=== PATIENT | female | born 1945 | race Caucasian/White ===

== ENCOUNTER 2025-03-12 09:33 | Emergency (ER) | payer MEDICARE ==
[~2025-03-12] VITALS: Ht 162.6 cm; Wt 104.5 kg
[2025-03-12 09:34] VITALS: BP 180/84; PULSE 74; TEMP 97; O2SAT 96
[2025-03-12 10:29] VITALS: RESP 16
--- NOTE | 2025-03-12 10:38 | Physician Documentation ---
History of Present Illness ~ Chief Complaint: Back Pain Stated Complaint: LOWER BACK PAIN Time Seen by MD: 09:39 HPI Patient is seen today patient complaining of low back pain chronic low back pain. Patient states he was seen at [facility] yesterday and got prescriptions for narcotic pain meds and muscle relaxers. She states she wants an MRI of her lower back. She went to her primary care office this morning but was unable to be seen today. Patient denies any saddle anesthesia or changes in bowel or bladder habits. Medication Reconciliation Allergies: Coded Allergies: amoxicillin (Verified Allergy, Mild, RASH, 03/12/25) Review of Systems Constitutional: Denies: chills, fever, weakness Eyes: Denies: pain, blurred vision ENT: Denies: ear pain, nose pain, throat pain, mouth pain Respiratory: Denies: cough, shortness of breath Cardiovascular: Denies: chest pain, palpitations Gastrointestinal: Denies: abdominal pain, nausea, vomiting Genitourinary: Denies: burning, dysuria Female Genitalia: Denies: vaginal discharge, pelvic pain Neurological: Denies: headache, dizziness Musculoskeletal: Denies: pain, swelling Integumentary: Denies: rash, lesions Allergic/Immunologic: Denies: hives, itching Hematologic/Lymphatic: Denies: no symptoms reported Psychiatric: Denies: depression, anxiety Physical Exam Physical Exam Vital Signs: Temperature: 97.0, Source: Temporal, Heart Rate: 74, Respiratory Rate: 16, BP: 180/84, Pulse Oximetry: 96, Weight: 104.550 Oxygen Flow Rate: 0 Physical Exam General: Awake and Alert, no acute distress. HEENT: Conjunctiva pink, Sclera clear, Mucus Membranes moist. Neck: Supple without masses and tenderness. Resp: Unlabored. Lungs clear to auscultation bilaterally. Heart: Regular Rate and rhythm, normal S1 and S2 without murmur, rub or gallop. Musculoskeletal: Patient on exam has significant decreased range of motion of the lumbar spine in all planes of motion. Patient is neurovascularly intact distally. Motor function and strength intact distally. Extremities: No cyanosis,clubbing or edema. Skin: Warm and Dry. Progress Results/Orders Results/Orders Vital Signs 03/12/25 03/12/25 09:34 10:29 Temp 97.0 Pulse 74 Resp 16 16 B/P (MAP) 180/84 Pulse Ox 96 O2 Flow Rate 0 Medical Decision Making Additional information obtaine: N/A Findings Patient is seen today patient complaining of low back pain chronic low back pain. Patient states he was seen at [facility] yesterday and got prescriptions for narcotic pain meds and muscle relaxers. She states she wants an MRI of her lower back. She went to her primary care office this morning but was unable to be seen today. Patient denies any saddle anesthesia or changes in bowel or bladder habits. Patient was informed that she does not currently qualify for an emergent MRI of the lumbar spine at this time. Patient became flustered and left prior to any other discussion of prescription of medication. Patient also was seen at [facility] and I recommended she pickle cutter the medication she was prescribed from [facility] and follow up with her primary care as soon as possible for referral for MRI of the lumbar spine and or physical therapy and orthopedic consult. Patient will return to ED with any worsening, concerning or changing symptoms. Differential Dx:Considerations: Fracture, Musculoskeletal pain, Strain, Urolithiasis Departure Disposition: HOME / SELF CARE / HOMELESS Impression: Primary Impression: Low back pain Qualified Codes: M54.42 - Lumbago with sciatica, left side Condition: Stable Discharge Instructions: Sciatica Additional Instructions: Patient was informed that she does not currently qualify for an emergent MRI of the lumbar spine at this time. Patient became flustered and left prior to any other discussion of prescription of medication. Patient also was seen at [facility] and I recommended she pickle cutter the medication she was prescribed from [facility] and follow up with her primary care as soon as possible for referral for MRI of the lumbar spine and or physical therapy and orthopedic consult. Patient will return to ED with any worsening, concerning or changing symptoms. Referrals: NO PRIMARY CARE PROVIDER (PCP) Signature Scribe Signature: No scribe Attestation: No scribe SHIVAM GARRIDO PAC Mar 12, 2025 10:38
== END 2025-03-12 10:41 | disposition home or self-care (01) ==
LOC: ER 09:34
DX: M54.42 Lumbago with sciatica, left side (principal); Z88.1 Allergy status to other antibiotic agents
CPT/HCPCS: 99282

== ENCOUNTER 2025-03-20 15:21 | Outpatient (CLI) | payer MEDICARE, OTHER ==
--- NOTE | 2025-03-20 17:28 | RADIOLOGY REPORT ---
PROCEDURE: MR MRI LUMBAR SPINE Indication: RADICULOPATHY, LUMBAR REGION COMPARISON: None TECHNIQUE: Multiplanar multisequence images of the the lumbar spine are obtained. FINDINGS: For the purpose of this examination, there are 5 lumbar vertebral body types counting from the lumbosacral junction. The lumbar vertebral body heights are maintained. Moderate multilevel disc space narrowing and desiccation. Alignment grossly preserved. No abnormal marrow edema. Conus terminates at the L1 level. T12-L1: Tiny disc protrusion. Mild facet and flavum hypertrophy. No spinal canal stenosis. Mild bilateral neural foraminal stenosis. L1-2: 2 mm disc protrusion. Mild facet and flavum hypertrophy. No spinal canal stenosis. Mild bilateral neural foraminal stenosis. L2-3: 3 mm broad-based disc protrusion. [id number] facet and flavum hypertrophy. No spinal canal stenosis. Moderate bilateral neural foraminal stenosis, [id number]. L3-4: 3 mm disc protrusion. Ippx-yk-[id number] facet and flavum hypertrophy. No spinal canal stenosis. Severe left and moderate right neural foraminal stenosis. L4-5: Tiny disc protrusion. Moderate facet and flavum hypertrophy. No spinal canal stenosis. Moderate right and [id number] left neural foraminal stenosis. L5-S1: 3 mm disc protrusion. [id number]-[id number]-[id number] facet and flavum hypertrophy. No spinal canal stenosis. Moderate right and mild left neural foraminal stenosis. IMPRESSION: Moderate lumbar degenerative disc disease. No high-grade spinal canal stenosis. Multilevel neural foraminal stenosis as described above.
== END 2025-03-20 23:59 | disposition home or self-care (01) ==
LOC: MRI 15:21
PROVIDERS: ATTEND Student in an Organized Health Care Education/Training Program
DX: M51.16 Intervertebral disc disorders with radiculopathy, lumbar region (principal); M47.26 Other spondylosis with radiculopathy, lumbar region; M47.818 Spondylosis without myelopathy or radiculopathy, sacral and sacrococcygeal region; M53.3 Sacrococcygeal disorders, not elsewhere classified
CPT/HCPCS: 72148